=== PATIENT | male | born 1970 | race Caucasian/White ===

== ENCOUNTER 2020-02-05 18:50 | Emergency (ER) | payer SELFPAY ==
[2020-02-05] MEDS ORDERED: Sodium Chloride 0.9% 10 ML Syringe FLUSH PRN (19:04)
--- NOTE | 2020-02-05 19:46 | CR ---
Chest: Portable view of the chest was obtained. Comparison: No prior chest imaging is available. Heart size and mediastinum are normal. Lungs are clear with no acute parenchymal change. Bony structures are grossly intact. Impression: 1. Nothing acute is appreciated on portable chest x-ray. Diagnostic code #1 This report was dictated in MDT
--- NOTE | 2020-02-05 20:10 | EDM.PDOC ---
ED HPI GENERAL MEDICAL PROBLEM - General Chief Complaint: Chest Pain Stated Complaint: SOB/CHEST PAIN/COUGH Time Seen by Provider: 02/05/20 19:47 Source of Information: Reports: Patient, RN Notes Reviewed History Limitations: Reports: No Limitations - History of Present Illness INITIAL COMMENTS - FREE TEXT/NARRATIVE: Patient is a 49-year-old male who presents to the ED for the evaluation of his upper abdomen pain and chest pain. The patient notes this has been present for the last 3 days, he states nothing really makes it better or worse, but it does seem to be constant. He notes this is a sharp stabbing pain. He has taken antacids, Pepcid, and Advil today with no relief. States that he feels short of breath because of the pain. Patient denies any cardiac history. Blood pressure is mildly elevated at time of triage 176/114. Pulse is 89, respiratory rate 18, O2 sats 97% on room air. Temperature is 99.2 F. The patient notes that he is a smoker, and smokes roughly 1/2-1 full pack of day for the last 5 years. He is a daily drinker of 6-8 beers daily, along with fireball. He also likes very spicy foods. He takes no regular medications, and he does not have a regular doctor that he sees. He denies any abdominal surgeries. Chest Pain Score (Numeric/FACES): 8 - Related Data Allergies Allergy/AdvReac Type Severity Reaction Status Date / Time No Known Allergies Allergy Verified 02/05/20 18:59 Home Meds: Home Meds . [No Known Home Meds] 02/05/20 [History] Past Medical History Musculoskeletal History: Reports: Arthritis - Past Surgical History HEENT Surgical History: Reports: Oral Surgery Musculoskeletal Surgical History: Reports: Other (See Below) Other Musculoskeletal Surgeries/Procedures:: L ankle and L arm sx Social & Family History - Family History Family Medical History: Noncontributory - Tobacco Use Smoking Status *Q: Current Every Day Smoker Years of Tobacco use: 5 Packs/Tins Daily: 1 - Caffeine Use Caffeine Use: Reports: Coffee, Energy Drinks Other Caffeine Use: energy drinks daily - Alcohol Use Alcohol Use History: Yes Days Per Week of Alcohol Use: 7 Number of Drinks Per Day: 8 Number of Drinks Per Day Comment: 6-8 beers daily, he also drinks fireball on a regular basis. Total Drinks Per Week: 56 Alcohol Use Frequency: Daily - Recreational Drug Use Recreational Drug Use: No ED ROS GENERAL - Review of Systems Review Of Systems: Comprehensive ROS is negative, except as noted in HPI. ED EXAM, GENERAL - Physical Exam Exam: See Below Exam Limited By: No Limitations General Appearance: Alert, WD/WN, No Apparent Distress Respiratory/Chest: No Respiratory Distress, Lungs Clear, Normal Breath Sounds, No Accessory Muscle Use, Chest Non-Tender Cardiovascular: Normal Peripheral Pulses, Regular Rate, Rhythm, No Murmur GI/Abdominal: Normal Bowel Sounds, Soft, No Distention, No Mass, Tender (over epigastrium) Extremities: Normal Inspection, Normal Capillary Refill Neurological: Alert, Oriented, Normal Cognition, No Motor/Sensory Deficits Psychiatric: Normal Affect, Normal Mood Skin Exam: Warm, Dry, Intact, Normal Color, No Rash EKG INTERPRETATION EKG Date: 02/05/20 Time: 19:08 Rhythm: NSR Rate (Beats/Min): 86 Rickman: Normal P-Wave: Present QRS: Normal ST-T: Normal QT: Normal Comparison: NA - No Prior EKG EKG Interpretation Comments: No obvious ischemia or acute ST changes noted, reviewed by myself and Dr. Pickard. Course - Vital Signs Last Recorded V/S: Last Vital Signs Temp 99.2 F 02/05/20 18:56 Pulse 89 02/05/20 18:56 Resp 18 02/05/20 18:56 BP 176/114 H 02/05/20 18:56 Pulse Ox 97 02/05/20 18:56 - Orders/Labs/Meds Orders: Active Orders 24 hr Category Date Time Status EKG Documentation Completion [RC] STAT Care 02/05/20 19:04 Active Peripheral IV Care [RC] . DIRECTED Care 02/05/20 19:04 Active Sodium Chloride 0.9% [Saline Flush] Med 02/05/20 19:04 Active 10 ml FLUSH ASDIRECTED PRN Peripheral IV Insertion Adult [OM.PC] Stat Oth 02/05/20 19:04 Ordered Medication Orders Sodium Chloride (Saline Flush) 10 ml FLUSH ASDIRECTED PRN PRN Reason: Keep Vein Open Last Admin: 02/05/20 19:19 Dose: 10 ml Documented by: JED Labs: Laboratory Tests 02/05/20 02/05/20 02/05/20 Range/Units 19:16 19:16 19:16 WBC 6.89 (4.23-9.07) K/mm3 RBC 4.82 (4.63-6.08) M/mm3 Hgb 16.0 (13.7-17.5) gm/dl Hct 45.7 (40.1-51.0) % MCV 94.8 H (79.0-92.2) fl MCH 33.2 H (25.7-32.2) pg MCHC 35.0 (32.2-35.5) g/dl RDW Std Deviation 43.0 (35.1-43.9) fL Plt Count 214 (163-337) K/mm3 MPV 10.2 (9.4-12.3) fl Neut % (Auto) 64.5 (34.0-67.9) % Lymph % (Auto) 21.2 L (21.8-53.1) % Florence % (Auto) 11.8 (5.3-12.2) % Eos % (Auto) 1.2 (0.8-7.0) Baso % (Auto) 1.2 (0.1-1.2) % Neut # (Auto) 4.45 (1.78-5.38) K/mm3 Lymph # (Auto) 1.46 (1.32-3.57) K/mm3 Florence # (Auto) 0.81 (0.30-0.82) K/mm3 Eos # (Auto) 0.08 (0.04-0.54) K/mm3 Baso # (Auto) 0.08 (0.01-0.08) K/mm3 PT 10.9 (9.7-12.0) SECONDS INR 1.02 APTT 27 (22-31) SECONDS Sodium 137 (136-145) mEq/L Potassium 3.6 (3.5-5.1) mEq/L Chloride 101 (98-107) mEq/L Carbon Dioxide 22 (21-32) mEq/L Anion Gap 17.6 H (5-15) BUN 13 (7-18) mg/dL Creatinine 1.0 (0.7-1.3) mg/dL Est Cr Clr Drug Dosing 85.38 mL/min Estimated GFR (MDRD) > 60 (>60) mL/min BUN/Creatinine Ratio 13.0 L (14-18) Glucose 92 (74-106) mg/dL Calcium 8.8 (8.5-10.1) mg/dL Magnesium 2.2 (1.8-2.4) mg/dl Total Bilirubin 0.5 (0.2-1.0) mg/dL AST 21 (15-37) U/L ALT 51 (16-63) U/L Alkaline Phosphatase 53 (46-116) U/L Troponin I < 0.017 (0.00-0.056) ng/mL NT-Pro-B Natriuret Pep (0-125) pg/mL Total Protein 7.2 (6.4-8.2) g/dl Albumin 3.7 (3.4-5.0) g/dl Globulin 3.5 gm/dL Albumin/Globulin Ratio 1.1 (1-2) 02/05/20 Range/Units 19:16 WBC (4.23-9.07) K/mm3 RBC (4.63-6.08) M/mm3 Hgb (13.7-17.5) gm/dl Hct (40.1-51.0) % MCV (79.0-92.2) fl MCH (25.7-32.2) pg MCHC (32.2-35.5) g/dl RDW Std Deviation (35.1-43.9) fL Plt Count (163-337) K/mm3 MPV (9.4-12.3) fl Neut % (Auto) (34.0-67.9) % Lymph % (Auto) (21.8-53.1) % Florence % (Auto) (5.3-12.2) % Eos % (Auto) (0.8-7.0) Baso % (Auto) (0.1-1.2) % Neut # (Auto) (1.78-5.38) K/mm3 Lymph # (Auto) (1.32-3.57) K/mm3 Florence # (Auto) (0.30-0.82) K/mm3 Eos # (Auto) (0.04-0.54) K/mm3 Baso # (Auto) (0.01-0.08) K/mm3 PT (9.7-12.0) SECONDS INR APTT (22-31) SECONDS Sodium (136-145) mEq/L Potassium (3.5-5.1) mEq/L Chloride (98-107) mEq/L Carbon Dioxide (21-32) mEq/L Anion Gap (5-15) BUN (7-18) mg/dL Creatinine (0.7-1.3) mg/dL Est Cr Clr Drug Dosing mL/min Estimated GFR (MDRD) (>60) mL/min BUN/Creatinine Ratio (14-18) Glucose (74-106) mg/dL Calcium (8.5-10.1) mg/dL Magnesium (1.8-2.4) mg/dl Total Bilirubin (0.2-1.0) mg/dL AST (15-37) U/L ALT (16-63) U/L Alkaline Phosphatase (46-116) U/L Troponin I (0.00-0.056) ng/mL NT-Pro-B Natriuret Pep 136 H (0-125) pg/mL Total Protein (6.4-8.2) g/dl Albumin (3.4-5.0) g/dl Globulin gm/dL Albumin/Globulin Ratio (1-2) Meds: Medications Generic Name Dose Route Start Last Admin Trade Name Freq PRN Reason Stop Dose Admin Sodium Chloride 10 ml 02/05/20 19:04 02/05/20 19:19 Saline Flush FLUSH 10 ml ASDIRECTED PRN Administration Keep Vein Open - Re-Assessments/Exams Free Text/Narrative Re-Assessment/Exam: 02/05/20 20:07 Patient presents to the ED for evaluation of his upper abdomen/chest pain. EKG was done at time of triage and demonstrates no acute abnormalities. Other laboratory evaluation is within normal limits. Chest x-ray is also within normal limits. I do highly suspect the patient either has ulcer or alcoholic gastritis. He will be started on omeprazole, on outpatient basis, and I did strongly urged the fact that he needs to establish with a primary care provider and start taking care of himself and making better life choices. I did go over risk factors with him, and he verbalized understanding. Departure - Departure Time of Disposition: 20:07 Disposition: Home, Self-Care 01 Condition: Good Clinical Impression: Gastritis Qualifiers: Gastritis type: alcoholic Chronicity: acute Gastritis bleeding: without bleeding Qualified Code(s): K29.20 - Alcoholic gastritis without bleeding Instructions: Gastritis, Adult, [id number] Referrals: PCP,None [Primary Care Provider] - Forms: ED Department Discharge Additional Instructions: You were evaluated in the ER today regarding your upper abdominal pain. A thorough examination was done at today's visit, and demonstrates you are not having any sort of cardiac symptoms which would be suggestive of a heart attack. Your chest x-ray also demonstrated no sign of consolidation or pneumonia, or other worrisome symptoms. It is likely that your upper abdomen pain is due to a gastritis, or inflammation of the stomach lining. Treatment for this will be starting an acid suppressing medication like omeprazole or Prilosec, on a daily basis, please take per manufacture instructions on the back of the box. This medication is available at any retail pharmacy, or [facility]. Please note this medication can take up to 72 hours to provide full benefit. Highly and strongly recommend you set up care with a primary care physician of your choice, our clinic number is [phone]. [facility] clinic number is [phone]. Any family practice provider would be able to provide you with the services. I do also strongly recommend that you try to refrain from some of the spicy foods you are eating, and try to cut back on the amount of alcohol you taken daily. This will also help with some of the symptoms of gastritis. You should think about trying to cut back on your smoking as well, as this also is a risk factor for making your gastritis worse. Please return to the ER at any time if symptoms change or worsen. Sepsis Event Note (ED) - Evaluation Sepsis Screening Result: No Definite Risk - Focused Exam Vital Signs: Vital Signs Temp Pulse Resp BP Pulse Ox 02/05/20 18:56 99.2 F 89 18 176/114 H 97 - My Orders Last 24 Hours: My Active Orders 02/05/20 19:04 EKG Documentation Completion [RC] STAT Peripheral IV Care [RC] . DIRECTED Sodium Chloride 0.9% [Saline Flush] 10 ml FLUSH ASDIRECTED PRN Peripheral IV Insertion Adult [OM.PC] Stat - Assessment/Plan Last 24 Hours: My Active Orders 02/05/20 19:04 EKG Documentation Completion [RC] STAT Peripheral IV Care [RC] . DIRECTED Sodium Chloride 0.9% [Saline Flush] 10 ml FLUSH ASDIRECTED PRN Peripheral IV Insertion Adult [OM.PC] Stat
== END 2020-02-05 20:22 | disposition home or self-care (01) ==
LOC: JD.ED 18:50
DX: K29.20 Alcoholic gastritis without bleeding (principal); F17.210 Nicotine dependence, cigarettes, uncomplicated
CPT/HCPCS: 36415; 71045; 71045-26; 80053; 83735; 83880; 84484; 85025; 85610; 85730; 93005; 93010; 99283; 99285-25

== ENCOUNTER 2022-04-10 16:41 | Emergency (ER) | payer BC ==
[2022-04-10] MEDS ORDERED: LORazepam 2 MG/ML SDV IVPUSH ONE (17:33)
[2022-04-10] MEDS ORDERED: Famotidine 20 MG/2 ML SDV IVPUSH ONE (17:33)
[2022-04-10] MEDS ORDERED: Lactated Ringers 1,000 ML IV ONE (17:33)
[2022-04-10] MEDS ORDERED: Alum Hydrox/Mag Hydrox/Simeth 30 ML, Lidocaine 2% 15 ML PO ONE ×2 (17:58)
[2022-04-10] MEDS ORDERED: chlordiazePOXIDE 25 MG Cap PO ONE (19:21)
== END 2022-04-10 19:40 | disposition home or self-care (01) ==
LOC: JD.ED 16:41
DX: K85.20 Alcohol induced acute pancreatitis without necrosis or infection (principal); I10 Essential (primary) hypertension; F10.10 Alcohol abuse, uncomplicated; F17.210 Nicotine dependence, cigarettes, uncomplicated; Z79.899 Other long term (current) drug therapy
CPT/HCPCS: 36415; 71045; 71045-26; 74176; 74176-26; 80053; 80307; 83690; 84484; 85025; 93005; 93010; 96361; 96374; 96375; 99284; 99285-25; A9270-GY; J2060; J3490; J7120